=== PATIENT | female | born 1985 ===

== ENCOUNTER 2022-10-20 20:12 | Emergency (ER) | payer OTHER, SELFPAY ==
[2022-10-20 20:22] VITALS: BP 138/80; PULSE 114; RESP 16; TEMP 37.3; O2SAT 99
--- NOTE | 2022-10-20 22:19 | ED_ITS ---
HPI - Dental/Oral General Chief complaint: Dental/Oral Stated complaint: dental face swelling Time Seen by Provider: 10/20/22 22:13 History of Present Illness HPI Narrative: Patient has history of dental abscesses and caries, otherwise 3 days has had swelling to her left cheek, she is trying to get into see a dentist but just came here for antibiotics. Related Data Allergies Allergy/AdvReac Type Severity Reaction Status Date / Time No Known Allergies Allergy Verified 10/20/22 20:13 Review of Systems Review of Systems: CONST: No fever. HEENT: Dental caries C/V: No chest pain RESP: No cough GI: No nausea or vomiting : No dysuria. M/S: No joint pain. SKIN: No rash. NEURO: [No headache or focal numbness or weakness] PSYCH: [No depression] [facility] Past Medical History Medical History (Updated 10/21/22 @ 06:47 by Jimena Yi MD) Dental caries Exam Narrative: EXAMINATION OF ORGAN SYSTEMS/BODY AREAS: Constitutional: Vital signs per nursing GENERAL:[No acute distress, non-toxic appearing.] HEAD: Normal with no signs of head trauma. EYES: EOMI, conjunctiva normal ENT: Poor dentition, swelling left cheek, left upper jaw dental caries. NO trismus LUNGS: Nonlabored breathing. HEART: [Regular rate and rhythm] ABD: [Soft], [tender to palpation] EXT: Normal range of motion SKIN: [No rashes or lesions.] NEURO: [Alert and oriented x 3. No gross focal sensory or strength deficits.] PSYCH: Normal affect Course Vital Signs Vital signs: Vital Signs Temperature 99.2 F 10/20/22 20:22 Pulse Rate 114 H 10/20/22 20:22 Respiratory Rate 16 10/20/22 20:22 Blood Pressure 138/80 10/20/22 20:22 Pulse Oximetry 99 10/20/22 20:22 Oxygen Delivery Room Air 10/20/22 20:22 Temperature 99.2 F 10/20/22 20:22 Pulse Rate 93 10/20/22 22:27 Respiratory Rate 16 10/20/22 22:27 Blood Pressure 122/79 10/20/22 22:27 Pulse Oximetry 99 10/20/22 22:27 Oxygen Delivery Room Air 10/20/22 20:22 MDM - Dental/Oral MDM Narrative Medical decision making narrative: ED COURSE AND MEDICAL DECISION MAKING: Patient with worsening dental pain and dental decay. No palpable fluctuant abscess. No systemic signs or symptoms. Analgesics and antibioics are administered. Follow-up instructions given for dental/oral surgery clinics. Patient was given return precautions and discharged home in stable condition. Lab Data Labs: UCG Bedside Result Negative Reference Range: Negative Discharge Plan Discharge Clinical Impression: Toothache, Dental abscess Patient Disposition: Home, Self-Care Condition: Stable Instructions: Antibiotic Form, Dental Abscess (ED) Additional Instructions: Please follow up with your dentist as soon as possible; come back if you feel worse. Prescriptions: New clindamycin HCl 150 mg capsule 450 mg PO Q8H 7 Days Qty: 63 0RF Follow-up/Referrals: PHYSICIAN NOT ON STAFF,NONSTAFF [Primary Care Provider] -
[2022-10-20] MEDS: CLINDAMYCIN HCL 150 MG CAP 450 MG PO (22:24)
[2022-10-20 22:27] VITALS: BP 122/79; PULSE 93; RESP 16; O2SAT 99
== END 2022-10-20 22:25 | disposition home or self-care (01) ==
LOC: ANHED 22:42
PROVIDERS: Emergency Provider Emergency Medicine
DX: K04.7 Periapical abscess without sinus (principal); K08.89 Other specified disorders of teeth and supporting structures
CPT/HCPCS: 81025; 99283; A9270